=== PATIENT | male | born 1980 | race African-American/Black ===

== ENCOUNTER 2017-10-26 12:55 | Emergency (ER) | payer SELFPAY ==
[2017-10-26] MEDS ORDERED: ONDANSETRON 4 MG TAB.RAPDIS PO ONE (13:22)
--- NOTE | 2017-10-26 13:28 | ER Document Report ---
ED GI/ - General Chief Complaint: Nausea/Vomiting/Diarrhea Stated Complaint: ABDOMINAL PAIN Time Seen by Provider: 10/26/17 13:22 Notes: The patient is a 37-year-old male, no past medical history, presents with 4 days of nausea, vomiting and watery diarrhea. In addition, he is having right upper neck pain and a right-sided headache. 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 Denies recent travel, hematemesis, fevers, chest pain, shortness of breath, blurry vision, focal weakness, numbness, tingling or undercooked foods. TRAVEL OUTSIDE OF THE [place] IN LAST 30 DAYS: No - Related Data Allergies/Adverse Reactions: No Known Allergies Allergy (Unverified 10/26/17 12:57) Past Medical History - General Information source: Patient - Social History Smoking Status: Current Some Day Smoker Chew tobacco use (# tins/day): No Frequency of alcohol use: None Drug Abuse: None Family History: Reviewed & Not Pertinent Patient has suicidal ideation: No Patient has homicidal ideation: No Renal/ Medical History: Denies: Hx Peritoneal Dialysis Review of Systems - Review of Systems Notes: REVIEW OF SYSTEMS: CONSTITUTIONAL: -fevers, -chills EENT: -eye pain, -difficulty swallowing, -nasal congestion CARDIOVASCULAR: -chest pain, -syncope. RESPIRATORY: -cough, -SOB GASTROINTESTINAL: -abdominal pain, +nausea, +vomiting, +diarrhea GENITOURINARY: -dysuria, -hematuria MUSCULOSKELETAL: -back pain, +right-sided neck pain SKIN: -rash or skin lesions. HEMATOLOGIC: -easy bruising or bleeding. LYMPHATIC: -swollen, enlarged glands. NEUROLOGICAL: -altered mental status or loss of consciousness, +headache, - neurologic symptoms PSYCHIATRIC: -anxiety, -depression. ALL OTHER SYSTEMS REVIEWED AND NEGATIVE. Physical Exam - Vital signs Vitals: Temp Pulse Resp BP Pulse Ox 98.4 F 83 16 127/88 H 95 10/26/17 12:59 10/26/17 12:59 10/26/17 12:59 10/26/17 12:59 10/26/17 12:59 - Notes Notes: PHYSICAL EXAMINATION: GENERAL: Well-appearing, well-nourished and in no acute distress. HEAD: Atraumatic, normocephalic. EYES: Pupils equal round and reactive to light, extraocular movements intact, sclera anicteric, conjunctiva are normal. ENT: nares patent, oropharynx clear without exudates. Moist mucous membranes. NECK: Normal range of motion, supple without lymphadenopathy, mild tenderness over right cervical paraspinal muscles. LUNGS: Breath sounds clear to auscultation bilaterally and equal. No wheezes rales or rhonchi. HEART: Regular rate and rhythm without murmurs ABDOMEN: Soft, nontender, normoactive bowel sounds. No guarding, no rebound. No masses appreciated. EXTREMITIES: Normal range of motion, no pitting or edema. No cyanosis. NEUROLOGICAL: Cranial nerves grossly intact. Normal speech, normal gait. Normal sensory and motor exams. PSYCH: Normal mood, normal affect. SKIN: Warm, Dry, normal turgor, no rashes or lesions noted. Course - Re-evaluation Re-evalutation: Patient appears well and his labs are unremarkable. Suspect a viral gastroenteritis with nausea, vomiting and diarrhea. He has absolutely no abdominal tenderness. Patient is drinking fluids after Zofran without any nausea or vomiting. This headache is not consistent with SAH, ICH or meningitis at this time. Will have a follow-up with his primary care physician. - Vital Signs Vital signs: Temp Pulse Resp BP Pulse Ox 98.4 F 83 16 127/88 H 95 10/26/17 12:59 10/26/17 12:59 10/26/17 12:59 10/26/17 12:59 10/26/17 12:59 - Laboratory Result Diagrams: 10/26/17 13:32 10/26/17 13:32 Laboratory results interpreted by me: 10/26/17 13:32 Seg Neutrophils % 78.2 H Discharge - Discharge Clinical Impression: Nausea vomiting and diarrhea, Exposure to paint fumes Headache Qualifiers: Headache type: unspecified Headache chronicity pattern: unspecified pattern Intractability: not intractable Qualified Code(s): R51 - Headache Condition: Stable Disposition: HOME, SELF-CARE Additional Instructions: VOMITING: Vomiting (or nausea without vomiting) can be caused by many other different problems. It can mean that something's wrong with the stomach, such as ulcers or inflammation or the intestinal tract, such as appendicitis. But it can also be a symptom of a problem that has nothing to do with the stomach or intestines. Vomiting is common with severe headaches, earaches, tonsillitis, and kidney infections, etc. We see it with pneumonia or heart attacks. Drugs can cause nausea and vomiting. Many abdominal problems cause vomiting; for example, gallstones, kidney stones, pancreatitis, and intestinal obstruction ( blocked bowels). In most cases, curing the vomiting depends on fixing the problem that caused it. For temporary relief, we may use an anti-nausea medicine. For home use, we can prescribe suppositories, chewable pills, pills that dissolve in the mouth, or liquid anti-nausea drugs. If the vomiting seems to be caused by a problem in the stomach, acid-suppressing drugs may be prescribed as well. It's important to avoid dehydration. Sip small amounts of clear liquids ( soft drinks, tea, broth, etc) . Try to take fluids frequently even if you are vomiting to prevent dehydration. Take increasing amounts of fluid and when liquids are being consumed successfully, advance to small amounts of bland food (toast, soups, mashed potatoes, etc.) until you are able to resume a regular diet. Avoid aspirin, tobacco, and alcohol. If the vomiting worsens, if the problem that's making you vomit worsens, or if there's evidence of bleeding in the stomach (such as black, tarry stool, or bloody or black vomit), you should return immediately. Also, return if abdominal pain worsens or becomes localized to one area or you develop high fever. Call your doctor if you aren't improved in 24 hours. DIARRHEA, NON-SPECIFIC: Diarrhea means frequent, watery stools. There are many causes. Any problem that keeps the intestinal tract from absorbing water from the stool can lead to diarrhea. A sudden new diarrhea problem is usually caused by a virus, food sensitivity, toxic bacteria, or drugs. In this case, we expect the problem to go away soon. Testing is done only if you seem seriously ill from the diarrhea. If you have chronic diarrhea, or diarrhea that keeps coming back, we need to find out why. Chronic diarrhea can be due to inflammation of the bowels such as Crohn's disease or ulcerative colitis, food sensitivity such as intolerance to lactose or wheat protein, irritable bowel syndrome, and other problems. If your diarrhea is a significant problem but it's not clear why you have it, we' ll refer you to a specialist for further testing. During an episode of diarrhea, drink small amounts (two to six ounces) of clear liquids (soft drinks, sport drinks, herb teas, broth, etc). Take fluids frequently to prevent dehydration. It's usually not a problem to take mild anti- diarrhea medication such as Kaopectate or Pepto-Bismol. As the diarrhea eases, advance to small amounts of bland food (mashed potato, toast) for 24 hours. Call the physician if blood appears in your vomit or stool, if vomiting lasts longer than 24 hours, if the abdominal pain worsens or becomes localized to one area, if you develop high fever, or if you become lightheaded and weak. VIRAL SYNDROME: The physician has diagnosed a viral infection. Viruses not only cause "colds," but can cause many different symptoms including generalized aching, fever, headache, cough, diarrhea, nausea, vomiting, and fatigue. The treatment, for the most part, is simply relief of symptoms. This means that antibiotics are usually not given. Rest, fluids, pain medications and, occasionally, medication for the specific symptoms that are most bothersome will be prescribed. Use good handwashing to avoid passing the virus to others. Shared toys should be cleaned with disinfectant. Clean the toilets, sinks, and counter surfaces in bathrooms. Launder clothing in hot water. Contact the physician if you develop any new or unusual symptoms such as severe headache, stiff neck, high fever, chest pain, productive cough, or shortness of breath. You should be rechecked if you don't see marked improvement within seven to 10 days. ANTINAUSEA MEDICATION: You have been given a medication to suppress nausea and vomiting. This type of medication can be given as a shot, pill, or suppository. It will usually last for many hours. Pills and shots usually last six to eight hours. For the typical illness, only one or two doses of the medication may be necessary. Mild lightheadedness may occur. This type of medicine can cause drowsiness. Do not drive or operate dangerous machinery while under its influence. Do not mix with alcohol. See your doctor at once if you have muscle spasms or tightness, or uncontrollable motions (particularly of the neck, mouth, or jaw). Persistent vomiting or severe lightheadedness should also be evaluated by the physician. FOLLOW-UP CARE: If you have been referred to a physician for follow-up care, call the physician s office for an appointment as you were instructed or within the next two days. If you experience worsening or a significant change in your symptoms, notify the physician immediately or return to the Emergency Department at any time for re-evaluation. HEADACHE: The physician does not feel that the headache you are experiencing has a serious underlying cause. Most headaches are due to emotional stress, with resultant muscle tension (tension headache). Occasionally, headaches are secondary to changes in the blood vessels of the scalp (vascular headache and migraine headache). Sometimes, a headache is the first symptom of another developing illness, such as a viral infection. You have no evidence of stroke, bleeding, meningitis, or other serious cause of your headache. The treatment of headaches varies with the severity and cause of the pain. Not all headaches need pain shots. In fact, there is evidence that using narcotics for headaches may make them worse in the long run. The physician will determine the therapy that's in your best interest. If you develop a fever, if the headache is different from any you've previously experienced, or if the headache progressively worsens, then call your physician at once or go to the emergency room. FOLLOW-UP CARE: If you have been referred to a physician for follow-up care, call the physician s office for an appointment as you were instructed or within the next two days. If you experience worsening or a significant change in your symptoms, notify the physician immediately or return to the Emergency Department at any time for re-evaluation. Prescriptions: Ondansetron [Zofran Odt 4 mg Tablet] 1 - 2 tab PO Q4H PRN #15 tab.rapdis PRN Reason: For Nausea/Vomiting Forms: Return to Work Referrals: [facility] [Outside] - Follow up as needed
[2017-10-26 13:44] LABS: ABSOLUTE LYMPHOCYTES (AUTO) 1.2 10^3/uL (0.5-4.7); ABSOLUTE MONOCYTES (AUTO) 0.6 10^3/uL (0.1-1.4); ABSOLUTE NEUT (AUTO) 6.5 10^3/uL (1.7-8.2); BASOPHILS % (AUTO) 0.3 % (0-2); EOSINOPHILS % (AUTO) 0.5 % (0-6); HEMATOCRIT 45.1 % (37.9-51.0); HEMOGLOBIN 15.3 g/dL (13.5-17.0); LYMPHOCYTES % (AUTO) 14.3 % (13-45); MEAN CORPUSCULAR HEMOGLOBIN 28.9 pg (27.0-33.4); MEAN CORPUSCULAR HGB CONC 33.9 g/dL (32.0-36.0); MEAN CORPUSCULAR VOLUME 85 fl (80-97); MONOCYTES % (AUTO) 6.7 % (3-13); PLATELET COUNT 185 10^3/uL (150-450); RED CELL DISTRIBUTION WIDTH 13.1 % (11.5-14.0); SEGMENTED NEUTROPHILS % (AUTO) 78.2 % (42-78); TOTAL CELLS COUNTED % (AUTO) 100 %; WHITE BLOOD COUNT 8.3 10^3/uL (4.0-10.5)
[2017-10-26 14:34] LABS: ALANINE AMINOTRANSFERASE 24 U/L (21-72); ALBUMIN 4.5 g/dL (3.5-5.0); ALKALINE PHOSPHATASE 60 U/L (38-126); ANION GAP 14 (5-19); ASPARTATE AMINO TRANSFERASE 17 U/L (17-59); BILIRUBIN,DIRECT 0.3 mg/dL (0.0-0.4); BILIRUBIN,TOTAL 1.1 mg/dL (0.2-1.3); BLOOD UREA NITROGEN 10 mg/dL (7-20); CALCIUM 10.1 mg/dL (8.4-10.2); CARBON DIOXIDE 27 mmol/L (22-30); CHLORIDE 101 mmol/L (98-107); GLUCOSE 109 mg/dL (75-110); LIPASE 38.7 U/L (23-300); POTASSIUM 4.4 mmol/L (3.6-5.0); SODIUM 141.7 mmol/L (137-145); TOTAL PROTEIN 7.6 g/dL (6.3-8.2)
[2017-10-26 14:58] VITALS: BP 128/77
== END 2017-10-26 14:58 | disposition home or self-care (01) ==
LOC: ER 12:55
DX: R11.2 Nausea with vomiting, unspecified (principal); F17.200 Nicotine dependence, unspecified, uncomplicated; R51 Headache
CPT/HCPCS: 99284; 36415; 83690; 85025; 80053; S0119

== ENCOUNTER 2019-03-31 21:51 | Inpatient (IN) | payer OTHER ==
[2019-03-31] MEDS ORDERED: ACETAMINOPHEN 325 MG TABLET PO ONE (23:27)
[2019-03-31 23:32] LABS: VENOUS BLOOD BASE EXCESS 2.5 mmol/L; VENOUS BLOOD HCO3 28.4 mmol/L (20-32); VENOUS BLOOD PCO2 48.6 mmHg (35-63); VENOUS BLOOD PH 7.39 (7.30-7.42)
[2019-03-31 23:34] LABS: ABSOLUTE LYMPHOCYTES (AUTO) 1.1 10^3/uL (0.5-4.7); ABSOLUTE NEUT (AUTO) 9.2 10^3/uL (1.7-8.2); BASOPHILS % (AUTO) 0.2 % (0-2); EOSINOPHILS % (AUTO) 0.2 % (0-6); HEMATOCRIT 43.1 % (37.9-51.0); HEMOGLOBIN 14.5 g/dL (13.5-17.0); LYMPHOCYTES % (AUTO) 9.9 % (13-45); MEAN CORPUSCULAR HEMOGLOBIN 27.8 pg (27.0-33.4); MEAN CORPUSCULAR HGB CONC 33.6 g/dL (32.0-36.0); MEAN CORPUSCULAR VOLUME 83 fl (80-97); MONOCYTES % (AUTO) 8.6 % (3-13); PLATELET COUNT 259 10^3/uL (150-450); RED CELL DISTRIBUTION WIDTH 13.6 % (11.5-14.0); SEGMENTED NEUTROPHILS % (AUTO) 81.1 % (42-78); TOTAL CELLS COUNTED % (AUTO) 100 %; WHITE BLOOD COUNT 11.4 10^3/uL (4.0-10.5)
--- NOTE | 2019-03-31 23:34 | ER Document Report ---
ED General - General Chief Complaint: Arm Problem Stated Complaint: ARM SWELLING Time Seen by Provider: 03/31/19 22:49 TRAVEL OUTSIDE OF THE [place] IN LAST 30 DAYS: No - HPI Notes: This is a 38-year-old male with a history of IV drug abuse, presenting to the emergency department complaining of fever and left upper extremity swelling. Patient states swelling has been going on for about a week. Initial temp in the emergency department is 102.7 Fahrenheit blood pressure is 126/79 heart rate is 129. Patient denies chills, visual changes, nausea, vomiting. - Related Data Allergies/Adverse Reactions: No Known Allergies Allergy (Unverified 10/26/17 12:57) Past Medical History - Social History Smoking Status: Current Every Day Smoker Frequency of alcohol use: None Drug Abuse: Heroin, Methamphetamine Family History: Reviewed & Not Pertinent Patient has suicidal ideation: No Patient has homicidal ideation: No - Past Medical History Cardiac Medical History: Reports: None Pulmonary Medical History: Reports: None EENT Medical History: Reports: None Neurological Medical History: Reports: None Endocrine Medical History: Reports: None Renal/ Medical History: Reports: None. Denies: Hx Peritoneal Dialysis Malignancy Medical History: Reports None GI Medical History: Reports: None Musculoskeletal Medical History: Reports None Skin Medical History: Reports None Psychiatric Medical History: Reports: None Review of Systems - Review of Systems Constitutional: See HPI, Fever EENT: No symptoms reported Cardiovascular: No symptoms reported Respiratory: No symptoms reported Gastrointestinal: No symptoms reported Genitourinary: No symptoms reported Male Genitourinary: No symptoms reported Musculoskeletal: See HPI Skin: See HPI Hematologic/Lymphatic: No symptoms reported Neurological/Psychological: No symptoms reported Physical Exam - Vital signs Vitals: Temp Pulse Resp BP Pulse Ox 102.7 F H 129 H 22 H 126/79 H 100 03/31/19 22:37 03/31/19 22:37 03/31/19 22:37 03/31/19 22:37 03/31/19 22:37 - General General appearance: Alert In distress: Mild - HEENT Head: Normocephalic, Atraumatic Eyes: Normal Pupils: PERRL - Respiratory Respiratory status: No respiratory distress Chest status: Nontender Breath sounds: Normal Chest palpation: Normal - Cardiovascular Rhythm: Tachycardia Heart sounds: Normal auscultation Murmur: No - Abdominal Inspection: Normal Distension: No distension Bowel sounds: Normal Tenderness: Nontender Organomegaly: No organomegaly - Extremities General upper extremity: Other - Left upper extremity exam is significant for moderate swelling on the radial aspect of the patient's forearm, proximally. This area is tender to palpation and edematous. The forearm compartment itself does not feel tense or rigid. Patient is able to move all of his digits of his left hand. Sensation is intact in all 5 digits. Range of motion is intact in all 5 digits. There is a mild amount of erythema in the region of the forearm mentioned above. No crepitus or emphysema is appreciated. - Neurological Neuro grossly intact: Yes Cognition: Normal Orientation: AAOx4 Natali Coma Scale Eye Opening: Spontaneous Natali Coma Scale Verbal: Oriented [place] Coma Scale Motor: Obeys Commands Natali Coma Scale Total: 15 Speech: Normal Cranial nerves: Normal - Psychological Associated symptoms: Normal affect, Normal mood - Skin Skin irregularity: other - Please refer to the musculoskeletal extremity exam sho thomason for skin findings Course - Re-evaluation Re-evalutation: 04/01/19 01:05 04/01/19 01:57 Patient is in no acute distress at this time. Drs. Cortez and Darryl have been consulted. Differential diagnosis: Cellulitis, abscess, compartment syndrome, sepsis, necrotizing fasciitis Impression: 38-year-old male with history of IV drug abuse presenting with left forearm swelling. Work-up is remarkable for a 5.4 cm fluid collection in the patient's left forearm consistent with an abscess. Final diagnoses: #1 left forearm abscess #2 history of IV drug abuse Plan: Admission for IV antibiotics, surgical I&D of left forearm abscess. - Vital Signs Vital signs: Temp Pulse Resp BP Pulse Ox 102.7 F H 129 H 19 132/84 H 99 03/31/19 22:37 03/31/19 22:37 03/31/19 23:01 03/31/19 23:00 03/31/19 23:01 - Laboratory Result Diagrams: 03/31/19 23:14 03/31/19 23:14 Laboratory results interpreted by me: 03/31/19 03/31/19 03/31/19 23:14 23:14 23:29 WBC 11.4 H Lymph % (Auto) 9.9 L Absolute Neuts (auto) 9.2 H Seg Neutrophils % 81.1 H Sodium 132.4 L Chloride 96 L Glucose 117 H POC Glucose 114 H AST 16 L Urine Ketones Leukocyte Esterase Rfl 04/01/19 00:16 WBC Lymph % (Auto) Absolute Neuts (auto) Seg Neutrophils % Sodium Chloride Glucose POC Glucose AST Urine Ketones TRACE H Leukocyte Esterase Rfl TRACE H Results reviewed by me. - Diagnostic Test Radiology reviewed: Reports reviewed - EKG Interpretation by Me Additional EKG results interpreted by me: 04/01/19 00:18 EKG obtained at 2325 hrs. on 03/31/2019 was interpreted by this MD. Findings: Sinus tachycardia, rate of 120, normal axis, narrow QRS complex, non specific ST segments. Impression: Sinus tachycardia with nonspecific ST segments - Consults dr. adrienne smalls, hospitalist Time consulted: 01:30 - will consult for IVDA issues Reason for consultation: 04/01/19 01:45 management of heroin abuse Consulted provider: will come to ER dr. alban cortez, surgicalist Time consulted: 01:38 - will admit to surgicalist service Reason for consultation: 04/01/19 01:47 Dr. Cortez was consulted for management of the patient's left forearm abscess. Dr. Cortez agreed to surgical management of the abscess and to admit the patient to the surgicalist service Discharge - Discharge Clinical Impression: Abscess of left forearm, History of intravenous drug abuse Condition: Good Disposition: ADMITTED INPATIENT Admitting Provider: Surgicalist Unit Admitted: Surgical Floor
[2019-03-31 23:40] LABS: INTERNATIONAL RATION (INR) 0.96; PROTHROMBIN TIME 12.8 SEC (11.4-15.4)
[2019-03-31] MEDS ORDERED: CEFTRIAXONE 1 GM/D5W RTU 1 GM/50 ML RTUPB IV SCH (23:45)
[2019-03-31] MEDS ORDERED: VANCOMYCIN HCL 0 MG in DEXTROSE 5%-WATER 250 ML IV NR (23:45)
[2019-03-31 23:58] LABS: ALBUMIN 3.7 g/dL (3.5-5.0); ALKALINE PHOSPHATASE 52 U/L (38-126); ANION GAP 9 (5-19); ASPARTATE AMINO TRANSFERASE 16 U/L (17-59); BILIRUBIN,DIRECT 0.1 mg/dL (0.0-0.4); BILIRUBIN,TOTAL 0.4 mg/dL (0.2-1.3); BLOOD UREA NITROGEN 7 mg/dL (7-20); CALCIUM 9.5 mg/dL (8.4-10.2); CARBON DIOXIDE 27 mmol/L (22-30); CHLORIDE 96 mmol/L (98-107); GLUCOSE 117 mg/dL (75-110); POTASSIUM 4.1 mmol/L (3.6-5.0)
[2019-03-31] MEDS ORDERED: NORMAL SALINE IV PRN (23:58)
[2019-04-01] MEDS ORDERED: VANCOMYCIN HCL INJ 1000 MG VIAL IV PRN (00:18)
[2019-04-01] MEDS ORDERED: VANCOMYCIN HCL 1,500 MG in DEXTROSE 5%-WATER 250 ML IV ONE (00:30)
--- NOTE | 2019-04-01 00:44 | RADIOLOGY REPORT (SQ) ---
EXAM DESCRIPTION: XR CHEST 1 VIEW COMPLETED DATE/TME: 04/01/2019 00:08 CLINICAL HISTORY: 38 years, Male, febrile COMPARISON: None. NUMBER OF VIEWS: One TECHNIQUE: AP view of the chest LIMITATIONS: None. FINDINGS: The lungs are clear. The heart is normal in size. There is no pneumothorax or pleural effusion. There is no acute fracture. IMPRESSION: No acute cardiopulmonary abnormality copyright 2010 [employer]- All Rights Reserved
[2019-04-01 00:50] LABS: APPEARANCE,URINE SLIGHTLY-CLOUDY; BILIRUBIN,URINE NEGATIVE (NEGATIVE); CALCIUM OXALATE CRYSTALS,URINE FEW /HPF; COLOR,URINE YELLOW; GLUCOSE, URINE NEGATIVE (NEGATIVE); KETONES,URINE TRACE mg/dL (NEGATIVE); PROTEIN,URINE NEGATIVE (NEGATIVE); URINE SPECIFIC GRAVITY 1.023; UROBILINOGEN,URINE NEGATIVE mg/dL (<2.0)
--- NOTE | 2019-04-01 01:02 | RADIOLOGY REPORT (SQ) ---
US EXTREMITY MUSCULOSKELETAL LIMITED EXAM DATE: 04/01/2019 12:09 AM CDT HISTORY: Forearm swelling. History of IV drug use. Evaluate for abscess. COMPARISON: None. TECHNIQUE: Sims-scale and color Doppler images of the left upper extremity were obtained. FINDINGS: There is a well-circumscribed complex heterogeneous mass in the soft tissues of the left forearm which measures approximately 5.4 x 3.8 x 2.0 cm. There is mild surrounding color Doppler blood flow. Overlying subcutaneous edema is present. IMPRESSION: 5.4 cm complex collection in the forearm soft tissues, which may represent an abscess in the correct clinical setting.
[2019-04-01] MEDS ORDERED: ONDANSETRON HCL INJ/PF 4 MG/2 ML SDV IV PRN (01:40)
[2019-04-01] MEDS ORDERED: NICOTINE 7 MG/24 HR PATCH.TD24 TD ONE (01:54)
[2019-04-01] MEDS ORDERED: VANCOMYCIN HCL 0 MG in DEXTROSE 5%-WATER 250 ML IV NR (02:00)
[2019-04-01] MEDS: DEXTROSE 5%-LACTATED RINGERS 1,000 ML IV PRN ×2 (04:03→22:21)
--- NOTE | 2019-04-01 05:31 | PDOC CONSULTATION ---
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 He presents with approximately 1 week of left forearm pain and swelling with subjective fevers and fatigue he seeks evaluation the emergency room where he is found to have a 5.4 cm abscess and referred to surgery for admission. Patient denies previous episode, admits to fatigue and subjective fever and palpitations. Past Medical History Cardiac Medical History: Reports: None Pulmonary Medical History: Reports: None EENT Medical History: Reports: None Neurological Medical History: Reports: None Endocrine Medical History: Reports: None Renal/ Medical History: Reports: None Malignancy Medical History: Reports: None GI Medical History: Reports: None Musculoskeltal Medical History: Reports: None Skin Medical History: Reports: None Psychiatric Medical History: Reports: None Social History Information Source: Patient Smoking Status: Current Every Day Smoker Electronic Cigarette use?: Yes Number of Years Smokin Frequency of Alcohol Use: Rare Hx Recreational Drug Use: Yes Drugs: Heroin, Other - Methamphetamine Hx Prescription Drug Abuse: No - Advance Directive Resuscitation Status: Full Code Family History Family History: COPD, Hypertension Parental Family History Reviewed: Yes Children Family History Reviewed: Yes Sibling(s) Family History Reviewed.: Yes Medication/Allergy Home Medications: Ondansetron [Zofran Odt 4 mg Tablet] 1 - 2 tab PO Q4H PRN #15 tab.rapdis 10/26/17 Allergies/Adverse Reactions: No Known Allergies Allergy (Unverified 10/26/17 12:57) Review of Systems Constitutional: PRESENT: as per HPI, chills, fatigue, fever(s), weakness, weight loss Eyes: ABSENT: visual disturbances Ears: ABSENT: hearing changes Cardiovascular: PRESENT: dyspnea on exertion, palpitations. ABSENT: chest pain, edema, orthropnea Respiratory: PRESENT: as per HPI, cough, dyspnea. ABSENT: hemoptysis, sputum Gastrointestinal: ABSENT: abdominal pain, constipation, diarrhea, hematemesis, hematochezia, nausea, vomiting Genitourinary: ABSENT: dysuria, hematuria Musculoskeletal: ABSENT: joint swelling Integumentary: ABSENT: rash, wounds Neurological: ABSENT: abnormal gait, abnormal speech, confusion, dizziness, focal weakness, syncope Psychiatric: ABSENT: anxiety, depression, homidical ideation, suicidal ideation Endocrine: ABSENT: cold intolerance, heat intolerance, polydipsia, polyuria Hematologic/Lymphatic: ABSENT: easy bleeding, easy bruising Physical Exam Vital Signs: Temp Pulse Resp BP Pulse Ox 98.4 F 95 18 121/74 96 04/01/19 04:00 04/01/19 04:00 04/01/19 04:00 04/01/19 04:00 04/01/19 04:00 Intake & Output 03/30/19 03/31/19 04/01/19 11:59 11:59 11:59 Intake Total 2402 Balance 2402 Weight 80.1 kg General appearance: PRESENT: cooperative, disheveled, mild distress, thin, well- developed. ABSENT: morbidly obese, obese, well-nourished Head exam: PRESENT: atraumatic, normocephalic Eye exam: PRESENT: conjunctiva pink, EOMI, PERRLA. ABSENT: scleral icterus Ear exam: PRESENT: normal external ear exam Mouth exam: PRESENT: moist, tongue midline Teeth exam: PRESENT: poor dentation Neck exam: ABSENT: carotid bruit, JVD, lymphadenopathy, thyromegaly Respiratory exam: PRESENT: prolonged expiratory phas. ABSENT: accessory muscle use, crackles, retraction Cardiovascular exam: PRESENT: +S1, +S2, systolic murmur, tachycardia. ABSENT: rubs Pulses: PRESENT: normal dorsalis pedis pul Vascular exam: PRESENT: normal capillary refill GI/Abdominal exam: PRESENT: normal bowel sounds, soft. ABSENT: distended, guarding, mass, organolmegaly, rebound, tenderness Rectal exam: PRESENT: deferred Extremities exam: PRESENT: full ROM, tenderness, other - Erythemic, swollen hot and painful left forearm. ABSENT: calf tenderness, clubbing, pedal edema Musculoskeletal exam: ABSENT: normal inspection Neurological exam: PRESENT: alert, awake, oriented to person, oriented to place, oriented to time, oriented to situation, CN II-XII grossly intact. ABSENT: motor sensory deficit Psychiatric exam: PRESENT: appropriate affect, normal mood. ABSENT: homicidal ideation, suicidal ideation Skin exam: PRESENT: dry, intact, warm. ABSENT: cyanosis, rash Results Laboratory Results: 03/31/19 23:14 03/31/19 23:14 03/31/19 03/31/19 03/31/19 23:14 23:14 23:14 WBC 11.4 H RBC 5.20 Hgb 14.5 Hct 43.1 MCV 83 MCH 27.8 MCHC 33.6 RDW 13.6 Plt Count 259 Seg Neutrophils % 81.1 H VBG pH VBG pCO2 VBG HCO3 VBG Base Excess Sodium 132.4 L Potassium 4.1 Chloride 96 L Carbon Dioxide 27 Anion Gap 9 BUN 7 Creatinine 0.77 Est GFR ( Amer) > 60 Glucose 117 H Lactic Acid 1.5 Calcium 9.5 Total Bilirubin 0.4 AST 16 L Alkaline Phosphatase 52 Total Protein 7.0 Albumin 3.7 Urine Color Urine Appearance Urine pH Ur Specific [place] Urine Protein Urine Glucose (UA) Urine Ketones Urine Blood Urine RBC (Auto) 03/31/19 04/01/19 23:14 00:16 WBC RBC Hgb Hct MCV MCH MCHC RDW Plt Count Seg Neutrophils % VBG pH 7.39 VBG pCO2 48.6 VBG HCO3 28.4 VBG Base Excess 2.5 Sodium Potassium Chloride Carbon Dioxide Anion Gap BUN Creatinine Est GFR ( Amer) Glucose Lactic Acid Calcium Total Bilirubin AST Alkaline Phosphatase Total Protein Albumin Urine Color YELLOW Urine Appearance SLIGHTLY-CLOUDY Urine pH 5.0 Ur Specific [place] 1.023 Urine Protein NEGATIVE Urine Glucose (UA) NEGATIVE Urine Ketones TRACE H Urine Blood NEGATIVE Urine RBC (Auto) 8 Impressions: Chest X-Ray 04/01/19 00:08 IMPRESSION: No acute cardiopulmonary abnormality copyright 2011 [employer]- All Rights Reserved Extremity Ultrasound 04/01/19 00:09 IMPRESSION: 5.4 cm complex collection in the forearm soft tissues, which may represent an abscess in the correct clinical setting. 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
[2019-04-01] MEDS: KETOROLAC TROMETHAMINE INJ/PF 30 MG/1 ML SDV IV SCH ×2 (05:54→14:32)
--- NOTE | 2019-04-01 06:28 | EKG REPORT ---
SEVERITY:- OTHERWISE NORMAL ECG - SINUS TACHYCARDIA : Confirmed by: Mo Hernandez MD 01-Apr-2019 06:28:10
--- NOTE | 2019-04-01 06:46 | PDOC H&P ---
History of Present Illness Admission Date/PCP: 04/01/19 01:54 Patient complains of: Left arm swelling and pain History of Present Illness: KEISHA GARCIA is a 38 year old male without other significant medical comorbidity. The patient has used IV drugs in the recent past, and began having swelling and pain in the left arm. The patient has recently injected heroin, however he has used other drugs in the remote past. He denies any recent history of cocaine or methamphetamine use. His symptoms began approximately 2 days ago. He reports fevers and chills at home. He denies nausea, vomiting, abdominal pain, chest pain, shortness of breath, headache, malaise, fatigue. His pain is rated at 10 out of 10. Nothing makes it better. Palpation and movement make it worse. The patient denies distal left upper externally paresthesias. He is able to move his hand without difficulty. Past Medical History Cardiac Medical History: Reports: None Pulmonary Medical History: Reports: None EENT Medical History: Reports: None Neurological Medical History: Reports: None Endocrine Medical History: Reports: None Renal/ Medical History: Reports: None Malignancy Medical History: Reports: None GI Medical History: Reports: None Musculoskeltal Medical History: Reports: None Skin Medical History: Reports: None Psychiatric Medical History: Reports: None Social History Smoking Status: Current Every Day Smoker Electronic Cigarette use?: Yes Number of Years Smokin Frequency of Alcohol Use: Rare Hx Recreational Drug Use: Yes Drugs: Heroin, Other - Methamphetamine in the past Hx Prescription Drug Abuse: No - Advance Directive Resuscitation Status: Full Code Family History Family History: COPD, Hypertension Parental Family History Reviewed: Yes Children Family History Reviewed: Yes Sibling(s) Family History Reviewed.: Yes Medication/Allergy Home Medications: Ondansetron [Zofran Odt 4 mg Tablet] 1 - 2 tab PO Q4H PRN #15 tab.rapdis 10/26/17 Allergies/Adverse Reactions: No Known Allergies Allergy (Unverified 10/26/17 12:57) Review of Systems Constitutional: PRESENT: chills, fever(s). ABSENT: anorexia, fatigue, headache(s), weakness Eyes: ABSENT: visual disturbances Ears: ABSENT: hearing changes Nose, Mouth, and Throat: ABSENT: mouth pain, sore throat Cardiovascular: ABSENT: chest pain Gastrointestinal: ABSENT: abdominal pain, hematochezia, melena, nausea, vomiting Genitourinary: ABSENT: difficulty urinating, dysuria Musculoskeletal: PRESENT: other - Left arm pain and swelling. ABSENT: back pain Integumentary: ABSENT: pruritus, rash Neurological: ABSENT: confusion, convulsions, dizziness, tingling, weakness Psychiatric: PRESENT: other - Substance abuse. ABSENT: anxiety, depression Endocrine: ABSENT: cold intolerance, heat intolerance Hematologic/Lymphatic: ABSENT: easy bleeding, easy bruising Physical Exam Vital Signs: Temp Pulse Resp BP Pulse Ox 98.4 F 95 18 121/74 96 04/01/19 04:00 04/01/19 04:00 04/01/19 04:00 04/01/19 04:00 04/01/19 04:00 Intake & Output 03/30/19 03/31/19 04/01/19 06:59 06:59 06:59 Intake Total 2402 Balance 2402 Weight 80.1 kg General appearance: PRESENT: mild distress - Left arm pain Head exam: PRESENT: atraumatic, normocephalic Eye exam: PRESENT: EOMI, PERRLA. ABSENT: scleral icterus Mouth exam: PRESENT: moist, neck supple Neck exam: ABSENT: meningismus, tenderness, thyromegaly, tracheal deviation Respiratory exam: PRESENT: clear to auscultation evert, unlabored. ABSENT: chest wall tenderness, tachypnea, wheezes Cardiovascular exam: PRESENT: RRR Pulses: PRESENT: normal radial pulses Vascular exam: PRESENT: normal capillary refill GI/Abdominal exam: PRESENT: soft. ABSENT: distended, guarding, rebound, rigid, tenderness Rectal exam: PRESENT: deferred Extremities exam: PRESENT: other - Tender left forearm on the anteromedial surf jeannine. Good range of motion. Motor function and sensory function appear intact Musculoskeletal exam: PRESENT: tenderness Neurological exam: PRESENT: alert, awake, oriented to person, oriented to place, oriented to time, oriented to situation, CN II-XII grossly intact. ABSENT: motor sensory deficit Psychiatric exam: ABSENT: agitated, anxious, depressed Focused psych exam: ABSENT: delusional Skin exam: PRESENT: erythema. ABSENT: cyanosis, jaundice Results Laboratory Results: 03/31/19 23:14 03/31/19 23:14 03/31/19 03/31/19 03/31/19 23:14 23:14 23:14 WBC 11.4 H RBC 5.20 Hgb 14.5 Hct 43.1 MCV 83 MCH 27.8 MCHC 33.6 RDW 13.6 Plt Count 259 Seg Neutrophils % 81.1 H VBG pH VBG pCO2 VBG HCO3 VBG Base Excess Sodium 132.4 L Potassium 4.1 Chloride 96 L Carbon Dioxide 27 Anion Gap 9 BUN 7 Creatinine 0.77 Est GFR ( Amer) > 60 Glucose 117 H Lactic Acid 1.5 Calcium 9.5 Total Bilirubin 0.4 AST 16 L Alkaline Phosphatase 52 Total Protein 7.0 Albumin 3.7 Urine Color Urine Appearance Urine pH Ur Specific [place] Urine Protein Urine Glucose (UA) Urine Ketones Urine Blood Urine RBC (Auto) 03/31/19 04/01/19 23:14 00:16 WBC RBC Hgb Hct MCV MCH MCHC RDW Plt Count Seg Neutrophils % VBG pH 7.39 VBG pCO2 48.6 VBG HCO3 28.4 VBG Base Excess 2.5 Sodium Potassium Chloride Carbon Dioxide Anion Gap BUN Creatinine Est GFR ( Amer) Glucose Lactic Acid Calcium Total Bilirubin AST Alkaline Phosphatase Total Protein Albumin Urine Color YELLOW Urine Appearance SLIGHTLY-CLOUDY Urine pH 5.0 Ur Specific [place] 1.023 Urine Protein NEGATIVE Urine Glucose (UA) NEGATIVE Urine Ketones TRACE H Urine Blood NEGATIVE Urine RBC (Auto) 8 Impressions: Chest X-Ray 04/01/19 00:08 IMPRESSION: No acute cardiopulmonary abnormality copyright 2011 [employer]- All Rights Reserved Extremity Ultrasound 04/01/19 00:09 IMPRESSION: 5.4 cm complex collection in the forearm soft tissues, which may represent an abscess in the correct clinical setting. Assessment & Plan - Diagnosis (1) Abscess of left forearm Is this a current diagnosis for this admission?: Yes (2) History of intravenous drug abuse Is this a current diagnosis for this admission?: Yes - Plan Summary Plan Summary: This is a 38-year-old male with a large left upper extremity abscess. It appears to be fairly deep-seated. I have recommended incision and drainage in the operating room. The patient has agreed to this. Risks/benefits discussed, informed consent obtained, and all questions answered.
--- NOTE | 2019-04-01 08:31 | PDOC PROGRESS REPORT ---
Subjective Progress Note for:: 04/01/19 Subjective:: 38 year old male with a past medical history of tobacco and daily m ethamphetamine and heroin IV drug use. He presents with approximately 1 week of left forearm pain and swelling with subjective fevers and fatigue he seeks evaluation the emergency room where he is found to have a 5.4 cm abscess and referred to surgery for admission. Patient denies previous episode, admits to fatigue and subjective fever and palpitations. 04/01/[id number]-old male with history of IV drug abuse admitted with left forearm abscess. No acute events since the admission. Patient may go for incision and drainage of the abscess today. Patient is comfortably in the bed denies any pain denies any problems. Reason For Visit: ARM ABSCESS Physical Exam Vital Signs: Temp Pulse Resp BP Pulse Ox 98.4 F 87 18 121/74 96 04/01/19 04:00 04/01/19 07:00 04/01/19 04:00 04/01/19 04:00 04/01/19 04:00 Intake & Output 03/31/19 04/01/19 04/02/19 06:59 06:59 06:59 Intake Total 2402 Balance 2402 Weight 80.1 kg General appearance: PRESENT: no acute distress, cooperative Head exam: PRESENT: atraumatic Eye exam: PRESENT: PERRLA Mouth exam: PRESENT: moist, tongue midline Teeth exam: PRESENT: poor dentation Neck exam: ABSENT: carotid bruit, JVD, lymphadenopathy, thyromegaly Respiratory exam: PRESENT: clear to auscultation evert. ABSENT: rales, rhonchi, wheezes Cardiovascular exam: PRESENT: RRR. ABSENT: diastolic murmur, rubs, systolic murmur GI/Abdominal exam: PRESENT: normal bowel sounds, soft. ABSENT: distended, guard ing, mass, organolmegaly, rebound, tenderness Rectal exam: PRESENT: deferred Extremities exam: PRESENT: full ROM. ABSENT: calf tenderness, clubbing, pedal edema Musculoskeletal exam: PRESENT: ambulatory Neurological exam: PRESENT: alert, awake, oriented to person, oriented to place, oriented to time, oriented to situation, CN II-XII grossly intact. ABSENT: motor sensory deficit Psychiatric exam: PRESENT: appropriate affect, normal mood. ABSENT: homicidal ideation, suicidal ideation Results Laboratory Results: 03/31/19 03/31/19 03/31/19 23:14 23:14 23:14 WBC 11.4 H RBC 5.20 Hgb 14.5 Hct 43.1 MCV 83 MCH 27.8 MCHC 33.6 RDW 13.6 Plt Count 259 Seg Neutrophils % 81.1 H VBG pH VBG pCO2 VBG HCO3 VBG Base Excess Sodium 132.4 L Potassium 4.1 Chloride 96 L Carbon Dioxide 27 Anion Gap 9 BUN 7 Creatinine 0.77 Est GFR ( Amer) > 60 Glucose 117 H Lactic Acid 1.5 Calcium 9.5 Total Bilirubin 0.4 AST 16 L Alkaline Phosphatase 52 Total Protein 7.0 Albumin 3.7 Urine Color Urine Appearance Urine pH Ur Specific [place] Urine Protein Urine Glucose (UA) Urine Ketones Urine Blood Urine RBC (Auto) 03/31/19 04/01/19 23:14 00:16 WBC RBC Hgb Hct MCV MCH MCHC RDW Plt Count Seg Neutrophils % VBG pH 7.39 VBG pCO2 48.6 VBG HCO3 28.4 VBG Base Excess 2.5 Sodium Potassium Chloride Carbon Dioxide Anion Gap BUN Creatinine Est GFR ( Amer) Glucose Lactic Acid Calcium Total Bilirubin AST Alkaline Phosphatase Total Protein Albumin Urine Color YELLOW Urine Appearance SLIGHTLY-CLOUDY Urine pH 5.0 Ur Specific [place] 1.023 Urine Protein NEGATIVE Urine Glucose (UA) NEGATIVE Urine Ketones TRACE H Urine Blood NEGATIVE Urine RBC (Auto) 8 Impressions: Chest X-Ray 04/01/19 00:08 IMPRESSION: No acute cardiopulmonary abnormality copyright 2010 [employer]- All Rights Reserved Extremity Ultrasound 04/01/19 00:09 IMPRESSION: 5.4 cm complex collection in the forearm soft tissues, which may represent an abscess in the correct clinical setting. Assessment and Plan - Diagnosis (1) Abscess of left forearm Is this a current diagnosis for this admission?: Yes Plan: Defer to surgery 04/01/2019-patient admitted with left forearm abscess patient may go for incision and drainage of abscess today. Surgical team is on board. Presently on IV vancomycin and ceftriaxone. Echocardiogram is pending. Blood cultures are pending. Temperature is 98.4. Today's labs are pending. (2) History of intravenous drug abuse Is this a current diagnosis for this admission?: Yes Plan: Monitor for withdrawal, opiates PRN 04/01/2019-patient has history of IV drug abuse, counseling was provided today. Echocardiogram was requested. Blood cultures are pending. Patient may be a candidate for BEL because of the history of IV drug abuse. Plan is to repeat the blood cultures today. - Time Time Spent with patient: 15-24 minutes Smoking Cessation Education: over 10 minutes Medications reviewed and adjusted accordingly: Yes Anticipated discharge: Home
[2019-04-01 08:32] LABS: ABSOLUTE LYMPHOCYTES (AUTO) 1.8 10^3/uL (0.5-4.7); ABSOLUTE MONOCYTES (AUTO) 1.3 10^3/uL (0.1-1.4); ABSOLUTE NEUT (AUTO) 8.2 10^3/uL (1.7-8.2); BASOPHILS % (AUTO) 0.3 % (0-2); EOSINOPHILS % (AUTO) 0.4 % (0-6); HEMATOCRIT 42.4 % (37.9-51.0); HEMOGLOBIN 14.3 g/dL (13.5-17.0); LYMPHOCYTES % (AUTO) 15.6 % (13-45); MEAN CORPUSCULAR HEMOGLOBIN 27.8 pg (27.0-33.4); MEAN CORPUSCULAR HGB CONC 33.7 g/dL (32.0-36.0); MEAN CORPUSCULAR VOLUME 83 fl (80-97); MONOCYTES % (AUTO) 11.4 % (3-13); PLATELET COUNT 254 10^3/uL (150-450); RED BLOOD COUNT 5.14 10^6/uL (4.35-5.55); RED CELL DISTRIBUTION WIDTH 13.7 % (11.5-14.0); SEGMENTED NEUTROPHILS % (AUTO) 72.3 % (42-78); TOTAL CELLS COUNTED % (AUTO) 100 %; WHITE BLOOD COUNT 11.3 10^3/uL (4.0-10.5)
[2019-04-01 08:59] LABS: ALBUMIN 3.2 g/dL (3.5-5.0); ALKALINE PHOSPHATASE 60 U/L (38-126); ANION GAP 9 (5-19); ASPARTATE AMINO TRANSFERASE 25 U/L (17-59); BILIRUBIN,DIRECT 0.2 mg/dL (0.0-0.4); BILIRUBIN,TOTAL 0.6 mg/dL (0.2-1.3); BLOOD UREA NITROGEN 5 mg/dL (7-20); CALCIUM 9.2 mg/dL (8.4-10.2); CARBON DIOXIDE 24 mmol/L (22-30); CHLORIDE 106 mmol/L (98-107); GLUCOSE 115 mg/dL (75-110); POTASSIUM 4.5 mmol/L (3.6-5.0); TOTAL PROTEIN 6.2 g/dL (6.3-8.2)
[2019-04-01] MEDS ORDERED: MORPHINE SULFATE SR 15 MG TABLET PO SCH (10:00)
[2019-04-01] MEDS: DOCUSATE SODIUM 100 MG CAPSULE PO SCH ×2 (11:19→18:40)
[2019-04-01] MEDS: VANCOMYCIN HCL 1,000 MG in DEXTROSE 5%-WATER 250 ML IV SCH ×2 (11:20→18:40)
[2019-04-01] MEDS ORDERED: FENTANYL CITRATE INJ/PF 100 MCG/2 ML AMPUL ONE (16:53)
[2019-04-01] MEDS ORDERED: PROPOFOL INJ 200 MG/20 ML VIAL IV ONE (16:53)
[2019-04-01] MEDS ORDERED: ONDANSETRON HCL INJ/PF 4 MG/2 ML SDV ONE (16:53)
[2019-04-01] MEDS ORDERED: KETAMINE HCL INJ 500 MG/10 ML VIAL ONE (16:53)
[2019-04-01] MEDS ORDERED: MIDAZOLAM 2 MG/2 ML INJ ONE (16:53)
[2019-04-01] MEDS ORDERED: BUPIVACAINE HCL 0.5%-EPI 1:200000 INJ/PF 30 ML VIAL ONE (17:39)
[2019-04-01] MEDS ORDERED: FENTANYL CITRATE INJ/PF 100 MCG/2 ML AMPUL IV PRN ×3 (17:47)
[2019-04-01] MEDS ORDERED: MEPERIDINE HCL/PF INJ 25 MG/1 ML DISP.SYRIN IV PRN (17:47)
[2019-04-01] MEDS ORDERED: MORPHINE SULFATE 10 MG/ML INJ IV PRN (17:47)
[2019-04-01] MEDS ORDERED: PROMETHAZINE HCL INJ 25 MG/1 ML VIAL IV PRN ×2 (17:47)
[2019-04-01] MEDS ORDERED: DIPHENHYDRAMINE HCL 50 MG/ML VIAL IV PRN (17:47)
[2019-04-01] MEDS ORDERED: BUPIVACAINE HCL 0.5%-EPI 1:200000 INJ/PF 30 ML VIAL INJ ONE (17:59)
--- NOTE | 2019-04-01 18:08 | Operative Report ---
Nonrecallable Operative Report DATE OF SURGERY: 04/01/19 PREOPERATIVE DIAGNOSIS: Left forearm abscess POSTOPERATIVE DIAGNOSIS: Left forearm abscess OPERATION: Incision and drainage of left forearm abscess SURGEON: TORSTEN SHOEMAKER ANESTHESIA: Moderate Sedation TISSUE REMOVED OR ALTERED: None COMPLICATIONS: None ESTIMATED BLOOD LOSS: 25 cc INTRAOPERATIVE FINDINGS: See note PROCEDURE: Patient was brought to the operating room awake alert in stable condition placed on the upper table supine position given IV sedation the left arm was prepped and draped in usual sterile fashion for the procedure. After appropriate timeout and site verification we commenced the procedure. Patient had a pointing abscess in the medial aspect of the left midforearm over the brachioradialis muscle longitudinal incision was made over it with a 15 blade dissection was carried down through subcutaneous tissue with the Bovie cautery. Upon reaching the muscle this was divided with Bovie cautery we get into the abscess cavity. Approximately 25 cc of creamy yellow pus exuded from the abscess cavity. The abscess cavity was opened in its entire length with the Bovie cautery incising the muscle. It was a intramuscular abscess. Hemostasis was obtained with Bovie cautery. The abscess cavity was then copiously irrigated with normal saline. It was then packed with a Betadine soaked sponge. Which completed the procedure Sterile dressing was applied the patient was transferred back to recovery room in stable condition. Estimated blood loss 25 cc sponge needle counts were correct x2.
[2019-04-01] MEDS: CEFTRIAXONE 1 GM/D5W RTU 1 GM/50 ML RTUPB IV SCH (22:22)
[2019-04-01] MEDS: OXYCODONE-ACETAMINOPHEN 5-325 MG TABLET PO PRN (22:22)
[2019-04-01] MEDS: MORPHINE SULFATE 10 MG/ML INJ IV PRN (23:41)
[2019-04-02] MEDS: VANCOMYCIN HCL 1,000 MG in DEXTROSE 5%-WATER 250 ML IV SCH ×3 (02:12→18:04)
[2019-04-02] MEDS: MORPHINE SULFATE 10 MG/ML INJ IV PRN ×5 (03:57→23:45)
[2019-04-02 05:44] LABS: ABSOLUTE BASOPHILS # (AUTO) 0.1 10^3/uL (0.0-0.2); ABSOLUTE LYMPHOCYTES (AUTO) 1.8 10^3/uL (0.5-4.7); ABSOLUTE MONOCYTES (AUTO) 1.5 10^3/uL (0.1-1.4); ABSOLUTE NEUT (AUTO) 11.5 10^3/uL (1.7-8.2); BASOPHILS % (AUTO) 0.4 % (0-2); EOSINOPHILS % (AUTO) 0.2 % (0-6); HEMATOCRIT 41.3 % (37.9-51.0); HEMOGLOBIN 13.8 g/dL (13.5-17.0); MEAN CORPUSCULAR HEMOGLOBIN 27.5 pg (27.0-33.4); MEAN CORPUSCULAR HGB CONC 33.4 g/dL (32.0-36.0); MEAN CORPUSCULAR VOLUME 82 fl (80-97); MONOCYTES % (AUTO) 10.3 % (3-13); PLATELET COUNT 241 10^3/uL (150-450); RED BLOOD COUNT 5.01 10^6/uL (4.35-5.55); RED CELL DISTRIBUTION WIDTH 13.5 % (11.5-14.0); SEGMENTED NEUTROPHILS % (AUTO) 77.1 % (42-78); TOTAL CELLS COUNTED % (AUTO) 100 %; WHITE BLOOD COUNT 14.9 10^3/uL (4.0-10.5)
[2019-04-02 06:01] LABS: ANION GAP 6 (5-19); BLOOD UREA NITROGEN 7 mg/dL (7-20); CALCIUM 9.2 mg/dL (8.4-10.2); CARBON DIOXIDE 27 mmol/L (22-30); CHLORIDE 102 mmol/L (98-107); GLUCOSE 123 mg/dL (75-110); POTASSIUM 4.4 mmol/L (3.6-5.0)
[2019-04-02] MEDS ORDERED: INFLUENZA QUAD (6MOS+) 2019-20 VAC 0.5 ML SYR IM ONE (08:00)
--- NOTE | 2019-04-02 09:41 | PDOC PROGRESS REPORT ---
Subjective Progress Note for:: 04/02/19 Subjective:: 38 year old male with a past medical history of tobacco and daily m ethamphetamine and heroin IV drug use. He presents with approximately 1 week of left forearm pain and swelling with subjective fevers and fatigue he seeks evaluation the emergency room where he is found to have a 5.4 cm abscess and referred to surgery for admission. Patient denies previous episode, admits to fatigue and subjective fever and palpitations. 04/[id number]-old male with history of IV drug abuse admitted with left forearm abscess. No acute events since the admission. Patient may go for incision and drainage of the abscess today. Patient is comfortably in the bed denies any pain denies any problems. 04/[id number]-[id number]-old male with history of IV drug abuse admitted with left forearm abscess incision and drainage of the abscess was done yesterday. Patient complains of soreness. No acute events in the last 24 hours. Blood cultures are positive for gram-positive cocci in clusters and he is receiving cefepime and IV vancomycin. Echocardiogram was requested report is pending. Reason For Visit: ARM ABSCESS Physical Exam Vital Signs: Temp Pulse Resp BP Pulse Ox 98.8 F 99 18 141/90 H 100 04/02/19 08:13 04/02/19 08:13 04/02/19 08:13 04/02/19 08:13 04/02/19 08:13 Intake & Output 04/01/19 04/02/19 04/03/19 06:59 06:59 06:59 Intake Total 2402 2350 Output Total 204 Balance 2402 2146 Weight 80.1 kg 80.1 kg General appearance: PRESENT: no acute distress, cooperative, well-developed Head exam: PRESENT: atraumatic Eye exam: PRESENT: PERRLA Mouth exam: PRESENT: moist, tongue midline Teeth exam: PRESENT: poor dentation Neck exam: ABSENT: carotid bruit, JVD, lymphadenopathy, thyromegaly Respiratory exam: PRESENT: decreased breath sounds Cardiovascular exam: PRESENT: RRR. ABSENT: diastolic murmur, rubs, systolic murmur GI/Abdominal exam: PRESENT: normal bowel sounds, soft. ABSENT: distended, gu arding, mass, organolmegaly, rebound, tenderness Rectal exam: PRESENT: deferred Extremities exam: PRESENT: full ROM. ABSENT: calf tenderness, clubbing, pedal edema Neurological exam: PRESENT: alert, awake, oriented to person, oriented to place, oriented to time, oriented to situation, CN II-XII grossly intact. ABSENT: mot or sensory deficit Psychiatric exam: PRESENT: appropriate affect, normal mood. ABSENT: homicidal ideation, suicidal ideation Skin exam: PRESENT: dry, intact, warm. ABSENT: cyanosis, rash Results Laboratory Results: 04/02/19 05:07 04/02/19 05:07 04/02/19 04/02/19 05:07 05:07 WBC 14.9 H RBC 5.01 Hgb 13.8 Hct 41.3 MCV 82 MCH 27.5 MCHC 33.4 RDW 13.5 Plt Count 241 Seg Neutrophils % 77.1 Sodium 135.1 L Potassium 4.4 Chloride 102 Carbon Dioxide 27 Anion Gap 6 BUN 7 Creatinine 0.79 Est GFR ( Amer) > 60 Glucose 123 H Calcium 9.2 Impressions: Chest X-Ray 04/01/19 00:08 IMPRESSION: No acute cardiopulmonary abnormality copyright 2010 [employer]- All Rights Reserved Extremity Ultrasound 04/01/19 00:09 IMPRESSION: 5.4 cm complex collection in the forearm soft tissues, which may represent an abscess in the correct clinical setting. Assessment and Plan - Diagnosis (1) Abscess of left forearm Is this a current diagnosis for this admission?: Yes Plan: Defer to surgery 04/01/2019-patient admitted with left forearm abscess patient may go for incision and drainage of abscess today. Surgical team is on board. Presently on IV vancomycin and ceftriaxone. Echocardiogram is pending. Blood cultures are pending. Temperature is 98.4. Today's labs are pending. 04/02/2019-patient came with left forearm abscess status post incision and drainage was done. Blood cultures were positive for gram-positive cocci in clusters. Plan is to continue IV cefepime and vancomycin. Today's WBC count is 14,900. [place] 98.3. (2) History of intravenous drug abuse Is this a current diagnosis for this admission?: Yes Plan: Monitor for withdrawal, opiates PRN 04/01/2019-patient has history of IV drug abuse, counseling was provided today. Echocardiogram was requested. Blood cultures are pending. Patient may be a candidate for BEL because of the history of IV drug abuse. Plan is to repeat the blood cultures today. - Time Time Spent with patient: 25-34 minutes Smoking Cessation Education: over 10 minutes Medications reviewed and adjusted accordingly: Yes Anticipated discharge: Home
[2019-04-02] MEDS: DOCUSATE SODIUM 100 MG CAPSULE PO SCH ×2 (10:40→18:01)
[2019-04-02 11:33] LABS: VANCOMYCIN,TROUGH 6.8 ug/mL (5.0-20.0)
[2019-04-02 11:37] LABS: HEPATITS B SURFACE ANTIGEN Negative (Negative)
[2019-04-02 11:48] LABS: HEPATITIS C VIRUS ANTIBODY 0.2 s/co ratio (0.0-0.9)
[2019-04-02] MEDS: OXYCODONE-ACETAMINOPHEN 5-325 MG TABLET PO PRN ×2 (11:58→18:04)
--- NOTE | 2019-04-02 20:41 | PDOC PROGRESS REPORT ---
Subjective Progress Note for:: 04/02/19 Subjective:: pains left forearm I&D site Reason For Visit: ARM ABSCESS Physical Exam Vital Signs: Temp Pulse Resp BP Pulse Ox 98.3 F 100 16 118/79 98 04/02/19 15:04 04/02/19 15:04 04/02/19 15:04 04/02/19 15:04 04/02/19 15:04 Intake & Output 04/01/19 04/02/19 04/03/19 06:59 06:59 06:59 Intake Total 2402 2350 1730 Output Total 204 Balance 2402 2146 1730 Weight 80.1 kg 80.1 kg Exam: packing removed. Appears relatively clean. Repacked with wet to dry saline dressing Results Laboratory Results: 04/02/19 05:07 04/02/19 05:07 04/02/19 04/02/19 05:07 05:07 WBC 14.9 H RBC 5.01 Hgb 13.8 Hct 41.3 MCV 82 MCH 27.5 MCHC 33.4 RDW 13.5 Plt Count 241 Seg Neutrophils % 77.1 Sodium 135.1 L Potassium 4.4 Chloride 102 Carbon Dioxide 27 Anion Gap 6 BUN 7 Creatinine 0.79 Est GFR ( Amer) > 60 Glucose 123 H Calcium 9.2 Impressions: Chest X-Ray 04/01/19 00:08 IMPRESSION: No acute cardiopulmonary abnormality copyright 2011 [employer]- All Rights Reserved Extremity Ultrasound 04/01/19 00:09 IMPRESSION: 5.4 cm complex collection in the forearm soft tissues, which may represent an abscess in the correct clinical setting. Assessment & Plan - Diagnosis (1) intramuscular abscess left forearm Is this a current diagnosis for this admission?: Yes - Time Time Spent with patient: 15-24 minutes - Inpatient Certification Medical Necessity: Need for IV Antibiotics - Plan Summary Plan Summary: Continue wet to dry dressings q 12 hrs Continue IV antibiotics Check final result of C/S
--- NOTE | 2019-04-02 20:47 | PDOC PROGRESS REPORT ---
Subjective Progress Note for:: 04/02/19 Subjective:: left forearm incisional pains Reason For Visit: ARM ABSCESS Physical Exam Vital Signs: Temp Pulse Resp BP Pulse Ox 98.3 F 100 16 118/79 98 04/02/19 15:04 04/02/19 15:04 04/02/19 15:04 04/02/19 15:04 04/02/19 15:04 Intake & Output 04/01/19 04/02/19 04/03/19 06:59 06:59 06:59 Intake Total 2402 2350 1730 Output Total 204 Balance 2402 2146 1730 Weight 80.1 kg 80.1 kg Exam: Packing from left forearm removed and replaced with wet to dry saline dressings Wound looks relatively clean Results Laboratory Results: 04/02/19 05:07 04/02/19 05:07 04/02/19 04/02/19 05:07 05:07 WBC 14.9 H RBC 5.01 Hgb 13.8 Hct 41.3 MCV 82 MCH 27.5 MCHC 33.4 RDW 13.5 Plt Count 241 Seg Neutrophils % 77.1 Sodium 135.1 L Potassium 4.4 Chloride 102 Carbon Dioxide 27 Anion Gap 6 BUN 7 Creatinine 0.79 Est GFR ( Amer) > 60 Glucose 123 H Calcium 9.2 Impressions: Chest X-Ray 04/01/19 00:08 IMPRESSION: No acute cardiopulmonary abnormality copyright 2011 [employer]- All Rights Reserved Extremity Ultrasound 04/01/19 00:09 IMPRESSION: 5.4 cm complex collection in the forearm soft tissues, which may represent an abscess in the correct clinical setting. Assessment & Plan - Diagnosis (1) intramuscular abscess left forearm Is this a current diagnosis for this admission?: Yes (2) History of intravenous drug abuse Is this a current diagnosis for this admission?: Yes - Time Time Spent with patient: 15-24 minutes - Inpatient Certification Medical Necessity: Need for IV Antibiotics, Risk of Complication if Not Cared For in Hospital - Plan Summary Plan Summary: Has g+ cocci in chains on Blood C/S. Await final C/S Wound C/S so far no growth Plan: Continue IV antibiotics and saline wet to dry dressings Await final C/S results
[2019-04-02] MEDS: DEXTROSE 5%-LACTATED RINGERS 1,000 ML IV PRN (21:07)
[2019-04-02] MEDS: CEFTRIAXONE 1 GM/D5W RTU 1 GM/50 ML RTUPB IV SCH (21:07)
--- NOTE | 2019-04-02 22:53 | XCELERA REPORT ---
[address] [address] Transthoracic Echocardiogram Report Name: KEISHA GARCIA Age: 38 yrs Gender: Male : 1980 Patient Status: Inpatient Patient Location: [address] [place] [address] Study Date: 04/01/2019 11:27 AM Height: 74 in Weight: 172 lb BSA: 2.0 m2 Procedure: A two-dimensional transthoracic echocardiogram with color flow and Doppler was performed. Study Quality: Fair. Reason For Study: systolic murmur c ivdu History: SYSTOLIC MURMUR / IV DRUG USE. Ordering Physician: ANI VENEGAS Performed By: Shannan Menjivar Interpretation Summary The left ventricle is normal in size. There is normal left ventricular wall thickness. The left ventricular ejection fraction is within normal limits. LV EF is 60% Doppler measurements suggest normal left ventricular diastolic function The left ventricular wall motion is normal. There is no thrombus. No ASD ,VSD , or PFO seen. The right ventricle is grossly normal size. The right atrium is normal. The left atrial size is normal. There is no evidence of mitral valve prolapse. There is no vegetation seen on the mitral valve. There is no mitral valve stenosis. There is a trace amount of mitral regurgitation There is no aortic valvular vegetation. There is no aortic valve stenosis There is no LVOT obstruction. No aortic regurgitation is present. There is no tricuspid valve vegetation. There is no tricuspid stenosis. There is a trace amount of tricuspid regurgitation Right ventricular systolic pressure is normal. RVSP is 23 to 28 mm of Hg , with RA mean of 5 to 10. There is no vegetation on the pulmonic valve. There is no pulmonic valvular stenosis. There is a trace amount of pulmonic regurgitation The aortic root is mildly dilated The inferior vena cava appeared normal and decreased > 50% with respiration (RAP 5-10 mmHg) There is no pericardial effusion. MMode/2D Measurements & Calculations RVDd: 3.2 cm LVIDd: 4.9 cm FS: 31.9 % Ao root diam: 4.0 cm IVSd: 0.61 cm LVIDs: 3.4 cm EDV(Teich): Ao root area: LVPWd: 0.85 cm 114.0 ml 12.5 cm2 ESV(Teich): 45.9 ml EF(Teich): 59.7 % EDV(MOD-sp4): SV(MOD-sp4): 83.7 ml 55.3 ml ESV(MOD-sp4): 28.4 ml EF(MOD-sp4): 66.1 % Doppler Measurements & Calculations MV E max karthikeyan: MV dec slope: Ao V2 max: LV V1 max P.4 cm/sec 111.2 cm/sec 3.8 mmHg MV A max karthikeyan: 483.0 cm/sec2 Ao max PG: LV V1 max: 58.3 cm/sec MV dec time: 0.15 sec4.9 mmHg 97.3 cm/sec MV E/A: 1.2 PA V2 max: TR max karthikeyan: 77.6 cm/sec 209.0 cm/sec PA max P.4 mmHg TR max P.5 mmHg Left Ventricle The left ventricle is normal in size. There is normal left ventricular wall thickness. The left ventricular ejection fraction is within normal limits. LV EF is 60%. Doppler measurements suggest normal left ventricular diastolic function. The left ventricular wall motion is normal. There is no thrombus. No ASD ,VSD , or PFO seen. Right Ventricle The right ventricle is grossly normal size. Atria The right atrium is normal. The left atrial size is normal. Mitral Valve There is no evidence of mitral valve prolapse. There is no vegetation seen on the mitral valve. There is no mitral valve stenosis. There is a trace amount of mitral regurgitation. Aortic Valve There is no aortic valvular vegetation. There is no aortic valve stenosis. There is no LVOT obstruction. No aortic regurgitation is present. Tricuspid Valve There is no tricuspid valve vegetation. There is no tricuspid stenosis. There is a trace amount of tricuspid regurgitation. Right ventricular systolic pressure is normal. RVSP is 23 to 28 mm of Hg , with RA mean of 5 to 10. Pulmonic Valve There is no vegetation on the pulmonic valve. There is no pulmonic valvular stenosis. There is a trace amount of pulmonic regurgitation. Great Vessels The aortic root is mildly dilated. The inferior vena cava appeared normal and decreased > 50% with respiration (RAP 5-10 mmHg). Effusions There is no pericardial effusion. : ANI VENEGAS Lakshmi
[2019-04-03] MEDS: OXYCODONE-ACETAMINOPHEN 5-325 MG TABLET PO PRN ×3 (01:11→16:53)
[2019-04-03] MEDS ORDERED: VANCOMYCIN HCL INJ 1000 MG VIAL ONE (01:16)
[2019-04-03] MEDS: VANCOMYCIN HCL 1,000 MG in DEXTROSE 5%-WATER 250 ML IV SCH ×2 (02:56→10:13)
[2019-04-03] MEDS: MORPHINE SULFATE 10 MG/ML INJ IV PRN ×4 (07:00→21:26)
[2019-04-03 07:44] LABS: ABSOLUTE EOSINOPHILS # (AUTO) 0.1 10^3/uL (0.0-0.6); ABSOLUTE LYMPHOCYTES (AUTO) 1.9 10^3/uL (0.5-4.7); ABSOLUTE MONOCYTES (AUTO) 0.8 10^3/uL (0.1-1.4); ABSOLUTE NEUT (AUTO) 5.1 10^3/uL (1.7-8.2); BASOPHILS % (AUTO) 0.2 % (0-2); EOSINOPHILS % (AUTO) 1.7 % (0-6); HEMATOCRIT 40.1 % (37.9-51.0); HEMOGLOBIN 13.7 g/dL (13.5-17.0); LYMPHOCYTES % (AUTO) 23.7 % (13-45); MEAN CORPUSCULAR HEMOGLOBIN 28.2 pg (27.0-33.4); MEAN CORPUSCULAR HGB CONC 34.1 g/dL (32.0-36.0); MEAN CORPUSCULAR VOLUME 83 fl (80-97); MONOCYTES % (AUTO) 9.6 % (3-13); PLATELET COUNT 253 10^3/uL (150-450); RED BLOOD COUNT 4.85 10^6/uL (4.35-5.55); RED CELL DISTRIBUTION WIDTH 13.3 % (11.5-14.0); SEGMENTED NEUTROPHILS % (AUTO) 64.8 % (42-78); TOTAL CELLS COUNTED % (AUTO) 100 %; WHITE BLOOD COUNT 7.9 10^3/uL (4.0-10.5)
[2019-04-03 08:02] LABS: ALBUMIN 3.3 g/dL (3.5-5.0); ALKALINE PHOSPHATASE 46 U/L (38-126); ANION GAP 9 (5-19); ASPARTATE AMINO TRANSFERASE 19 U/L (17-59); BILIRUBIN,DIRECT 0.1 mg/dL (0.0-0.4); BILIRUBIN,TOTAL 0.4 mg/dL (0.2-1.3); BLOOD UREA NITROGEN 8 mg/dL (7-20); CALCIUM 9.8 mg/dL (8.4-10.2); CARBON DIOXIDE 28 mmol/L (22-30); CHLORIDE 102 mmol/L (98-107); GLUCOSE 106 mg/dL (75-110); POTASSIUM 4.7 mmol/L (3.6-5.0); TOTAL PROTEIN 6.6 g/dL (6.3-8.2)
[2019-04-03] MEDS: DOCUSATE SODIUM 100 MG CAPSULE PO SCH ×2 (10:13→17:14)
--- NOTE | 2019-04-03 10:17 | PDOC PROGRESS REPORT ---
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 He presents with approximately 1 week of left forearm pain and swelling with subjective fevers and fatigue he seeks evaluation the emergency room where he is found to have a 5.4 cm abscess and referred to surgery for admission. Patient denies previous episode, admits to fatigue and subjective fever and palpitations. 04/01/[id number]-rodp-old male with history of IV drug abuse admitted with left forearm abscess. No acute events since the admission. Patient may go for incision and drainage of the abscess today. Patient is comfortably in the bed denies any pain denies any problems. 04/02/[id number]-nruk-old male with history of IV drug abuse admitted with left forearm abscess incision and drainage of the abscess was done yesterday. Patient complains of soreness. No acute events in the last 24 hours. Blood cultures are positive for gram-positive cocci in clusters and he is receiving cefepime and IV vancomycin. Echocardiogram was requested report is pending. 04/03/[id number]-mknu-old male admitted with left forearm abscess status post incision and drainage was done. Wound cultures came back positive for gram- positive cocci and blood cultures are positive for staph aureus. Patient is receiving IV cefepime and IV vancomycin. Echo cardiogram was done no evidence of endocarditis reported. Reason For Visit: ARM ABSCESS Physical Exam Vital Signs: Temp Pulse Resp BP Pulse Ox 98.1 F 80 17 116/61 98 04/03/19 08:00 04/03/19 08:00 04/03/19 08:00 04/03/19 08:00 04/03/19 08:00 Intake & Output 04/02/19 04/03/19 04/04/19 06:59 06:59 06:59 Intake Total 2350 2870 Output Total 204 Balance 2146 2870 Weight 80.1 kg 80.5 kg General appearance: PRESENT: no acute distress, cooperative, well-developed Head exam: PRESENT: atraumatic Eye exam: PRESENT: PERRLA Mouth exam: PRESENT: dry mucosa Teeth exam: PRESENT: poor dentation Neck exam: ABSENT: carotid bruit, JVD, lymphadenopathy, thyromegaly Respiratory exam: PRESENT: decreased breath sounds Cardiovascular exam: PRESENT: RRR. ABSENT: diastolic murmur, rubs, systolic murmur GI/Abdominal exam: PRESENT: normal bowel sounds, soft. ABSENT: distended, guarding, mass, organolmegaly, rebound, tenderness Rectal exam: PRESENT: deferred Extremities exam: PRESENT: full ROM. ABSENT: calf tenderness, clubbing, pedal edema Neurological exam: PRESENT: alert, awake, oriented to person, oriented to place, oriented to time, oriented to situation, CN II-XII grossly intact. ABSENT: motor sensory deficit Psychiatric exam: PRESENT: appropriate affect, normal mood. ABSENT: homicidal ideation, suicidal ideation Results Laboratory Results: 04/03/19 06:50 04/03/19 06:50 04/03/19 04/03/19 06:50 06:50 WBC 7.9 RBC 4.85 Hgb 13.7 Hct 40.1 MCV 83 MCH 28.2 MCHC 34.1 RDW 13.3 Plt Count 253 Seg Neutrophils % 64.8 Sodium 138.6 Potassium 4.7 Chloride 102 Carbon Dioxide 28 Anion Gap 9 BUN 8 Creatinine 0.75 Est GFR ( Amer) > 60 Glucose 106 Calcium 9.8 Magnesium 2.1 Total Bilirubin 0.4 AST 19 Alkaline Phosphatase 46 Total Protein 6.6 Albumin 3.3 L Impressions: Chest X-Ray 04/01/19 00:08 IMPRESSION: No acute cardiopulmonary abnormality copyright 2010 [employer]- All Rights Reserved Extremity Ultrasound 04/01/19 00:09 IMPRESSION: 5.4 cm complex collection in the forearm soft tissues, which may represent an abscess in the correct clinical setting. Assessment and Plan - Diagnosis (1) Abscess of left forearm Is this a current diagnosis for this admission?: Yes Plan: Defer to surgery 04/01/2019-patient admitted with left forearm abscess patient may go for inci lucas and drainage of abscess today. Surgical team is on board. Presently on IV vancomycin and ceftriaxone. Echocardiogram is pending. Blood cultures are pending. Temperature is 98.4. Today's labs are pending. 04/02/2019-patient came with left forearm abscess status post incision and drainage was done. Blood cultures were positive for gram-positive cocci in clusters. Plan is to continue IV cefepime and vancomycin. Today's WBC count is 14,900. [place] 98.3. 04/03/2019-patient admitted with left forearm abscess status post incision and drainage was done. Blood cultures are positive for staph aureus waiting for the sensitivity report and wound cultures are positive for gram-positive cocci in chains. Plan is to continue IV cephapirin and IV vancomycin. WBC count is 7.9 T-max is 98.7. Echocardiogram is normal. (2) History of intravenous drug abuse Is this a current diagnosis for this admission?: Yes - Time Time Spent with patient: 25-34 minutes Smoking Cessation Education: over 10 minutes Medications reviewed and adjusted accordingly: Yes Anticipated discharge: Home
[2019-04-03 11:05] LABS: VANCOMYCIN,TROUGH 8.7 ug/mL (5.0-20.0)
[2019-04-03] MEDS: VANCOMYCIN HCL 1,250 MG in DEXTROSE 5%-WATER 250 ML IV SCH (18:34)
--- NOTE | 2019-04-03 19:40 | PDOC PROGRESS REPORT ---
Subjective Progress Note for:: 04/03/19 Subjective:: Pains along the left forearm Reason For Visit: ARM ABSCESS Physical Exam Vital Signs: Temp Pulse Resp BP Pulse Ox 98.3 F 86 17 111/63 100 04/03/19 16:00 04/03/19 16:00 04/03/19 16:00 04/03/19 16:00 04/03/19 16:00 Intake & Output 04/02/19 04/03/19 04/04/19 06:59 06:59 06:59 Intake Total 2350 2870 835 Output Total 204 Balance 2146 2870 835 Weight 80.1 kg 80.5 kg Exam: Dressings removed and the wound looks clean and shallower. New wet-to-dry dressings were placed. Results Laboratory Results: 04/03/19 06:50 04/03/19 06:50 04/03/19 04/03/19 06:50 06:50 WBC 7.9 RBC 4.85 Hgb 13.7 Hct 40.1 MCV 83 MCH 28.2 MCHC 34.1 RDW 13.3 Plt Count 253 Seg Neutrophils % 64.8 Sodium 138.6 Potassium 4.7 Chloride 102 Carbon Dioxide 28 Anion Gap 9 BUN 8 Creatinine 0.75 Est GFR ( Amer) > 60 Glucose 106 Calcium 9.8 Magnesium 2.1 Total Bilirubin 0.4 AST 19 Alkaline Phosphatase 46 Total Protein 6.6 Albumin 3.3 L 04/01/19 00:16 Clean Catch Midstream Urine Culture - Final NO GROWTH 2 DAYS Impressions: Chest X-Ray 04/01/19 00:08 IMPRESSION: No acute cardiopulmonary abnormality copyright 2011 [employer]- All Rights Reserved Extremity Ultrasound 04/01/19 00:09 IMPRESSION: 5.4 cm complex collection in the forearm soft tissues, which may represent an abscess in the correct clinical setting. Assessment & Plan - Diagnosis (1) intramuscular abscess left forearm Is this a current diagnosis for this admission?: Yes (2) History of intravenous drug abuse Is this a current diagnosis for this admission?: Yes - Time Time Spent with patient: 15-24 minutes - Inpatient Certification Medical Necessity: Need for IV Antibiotics - Plan Summary Plan Summary: Continue with local wound care and IV antibiotics. Awaiting final sensitivity studies for Gram positive cocci in chains for the wound and staph aureus for the blood culture. Patient remains afebrile and the wound looks very good at this time
[2019-04-03] MEDS: CEFTRIAXONE 1 GM/D5W RTU 1 GM/50 ML RTUPB IV SCH (21:27)
[2019-04-03] MEDS: DEXTROSE 5%-LACTATED RINGERS 1,000 ML IV PRN (22:45)
[2019-04-04] MEDS: OXYCODONE-ACETAMINOPHEN 5-325 MG TABLET PO PRN ×3 (00:09→17:37)
[2019-04-04] MEDS: MORPHINE SULFATE 10 MG/ML INJ IV PRN ×4 (01:26→20:13)
[2019-04-04] MEDS: VANCOMYCIN HCL 1,250 MG in DEXTROSE 5%-WATER 250 ML IV SCH ×2 (01:26→11:13)
[2019-04-04] MEDS: DOCUSATE SODIUM 100 MG CAPSULE PO SCH ×2 (10:01→17:36)
--- NOTE | 2019-04-04 10:30 | PDOC PROGRESS REPORT ---
Subjective Progress Note for:: 04/04/19 Reason For Visit: ARM abscess patient has no complaints. Physical Exam Vital Signs: Temp Pulse Resp BP Pulse Ox 97.6 F 68 17 107/84 100 04/04/19 08:00 04/04/19 08:00 04/04/19 08:00 04/04/19 08:00 04/04/19 08:00 Intake & Output 04/03/19 04/04/19 04/05/19 06:59 06:59 06:59 Intake Total 2870 3645 Balance 2870 3645 Weight 80.5 kg 80.6 kg General appearance: PRESENT: no acute distress Gentrourinary exam: PRESENT: other - Anemia examined. Loop Butternut drains intact, related, and 3 wound cavities. Wounds irrigated with saline, repack with small portions of gauze. Davis catheter still in Musculoskeletal exam: PRESENT: other - Wound open, clean, minimal serous fluid. No cellulitis. Graft range of motion of the wrist and forearm preserved. Results Laboratory Results: 04/03/19 06:50 04/03/19 06:50 04/01/19 17:55 Forearm - Left Gram Stain - Final 04/01/19 17:55 Forearm - Left Wound Culture - Final Strep Anginosus Group No Anaerobic Organisms 03/31/19 23:14 Blood Blood Culture - Final Strep Anginosus Group 04/01/19 00:16 Clean Catch Midstream Urine Culture - Final NO GROWTH 2 DAYS Impressions: Chest X-Ray 04/01/19 00:08 IMPRESSION: No acute cardiopulmonary abnormality copyright 2011 [employer]- All Rights Reserved Extremity Ultrasound 04/01/19 00:09 IMPRESSION: 5.4 cm complex collection in the forearm soft tissues, which may represent an abscess in the correct clinical setting. Assessment & Plan - Diagnosis (1) intramuscular abscess left forearm Is this a current diagnosis for this admission?: Yes Plan: Impression: Wound clean, planning to heal by secondary intention. Growing staph, sensitive to cephalosporins Recommend agents: 1. Will get patient up, shower, start teaching patient dressing changes. 2. Anticipate discharge home tomorrow. - Time Time Spent with patient: 15-24 minutes
--- NOTE | 2019-04-04 11:43 | PDOC PROGRESS REPORT ---
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 He presents with approximately 1 week of left forearm pain and swelling with subjective fevers and fatigue he seeks evaluation the emergency room where he is found to have a 5.4 cm abscess and referred to surgery for admission. Patient denies previous episode, admits to fatigue and subjective fever and palpitations. 04/01/[id number]-xrax-old male with history of IV drug abuse admitted with left forearm abscess. No acute events since the admission. Patient may go for incision and drainage of the abscess today. Patient is comfortably in the bed denies any pain denies any problems. 04/02/[id number]-bisy-old male with history of IV drug abuse admitted with left forearm abscess incision and drainage of the abscess was done yesterday. Patient complains of soreness. No acute events in the last 24 hours. Blood cultures are positive for gram-positive cocci in clusters and he is receiving cefepime and IV vancomycin. Echocardiogram was requested report is pending. 04/03/[id number]-cmpx-old male admitted with left forearm abscess status post incision and drainage was done. Wound cultures came back positive for gram- positive cocci and blood cultures are positive for staph aureus. Patient is receiving IV cefepime and IV vancomycin. Echo cardiogram was done no evidence of endocarditis reported. 07/05/[id number]-ujoa-old male admitted with left forearm abscess status post incision and drainage was done. Wound cultures came back positive for staph aureus. Presently on IV ceftriaxone and IV vancomycin , IV vancomycin is discontinued by the surgical team. Presently on IV ceftriaxone. Afebrile. Plan is to continue to follow the patient regular basis. Reason For Visit: ARM ABSCESS Physical Exam Vital Signs: Temp Pulse Resp BP Pulse Ox 97.6 F 68 17 107/84 100 04/04/19 08:00 04/04/19 08:00 04/04/19 08:00 04/04/19 08:00 04/04/19 08:00 Intake & Output 04/03/19 04/04/19 04/05/19 06:59 06:59 06:59 Intake Total 2870 3645 Balance 2870 3645 Weight 80.5 kg 80.6 kg General appearance: PRESENT: no acute distress Head exam: PRESENT: atraumatic Eye exam: PRESENT: PERRLA Mouth exam: PRESENT: dry mucosa Teeth exam: PRESENT: poor dentation Respiratory exam: PRESENT: decreased breath sounds Cardiovascular exam: PRESENT: RRR. ABSENT: diastolic murmur, rubs, systolic murmur GI/Abdominal exam: PRESENT: normal bowel sounds, soft. ABSENT: distended, guarding, mass, organolmegaly, rebound, tenderness Rectal exam: PRESENT: deferred Extremities exam: PRESENT: full ROM. ABSENT: calf tenderness, clubbing, pedal edema Neurological exam: PRESENT: alert, awake, oriented to person, oriented to place, oriented to time, oriented to situation, CN II-XII grossly intact. ABSENT: motor sensory deficit Psychiatric exam: PRESENT: appropriate affect, normal mood. ABSENT: homicidal ideation, suicidal ideation Results Laboratory Results: 04/03/19 06:50 04/03/19 06:50 04/01/19 17:55 Forearm - Left Gram Stain - Final 04/01/19 17:55 Forearm - Left Wound Culture - Final Strep Anginosus Group No Anaerobic Organisms 03/31/19 23:14 Blood Blood Culture - Final Strep Anginosus Group 04/01/19 00:16 Clean Catch Midstream Urine Culture - Final NO GROWTH 2 DAYS Impressions: Chest X-Ray 04/01/19 00:08 IMPRESSION: No acute cardiopulmonary abnormality copyright 2011 [employer]- All Rights Reserved Extremity Ultrasound 04/01/19 00:09 IMPRESSION: 5.4 cm complex collection in the forearm soft tissues, which may represent an abscess in the correct clinical setting. Assessment and Plan - Diagnosis (1) Abscess of left forearm Is this a current diagnosis for this admission?: Yes Plan: Defer to surgery 04/01/2019-patient admitted with left forearm abscess patient may go for incision and drainage of abscess today. Surgical team is on board. Presently on IV vancomycin and ceftriaxone. Echocardiogram is pending. Blood cultures are pending. Temperature is 98.4. Today's labs are pending. 04/02/2019-patient came with left forearm abscess status post incision and drainage was done. Blood cultures were positive for gram-positive cocci in clusters. Plan is to continue IV cefepime and vancomycin. Today's WBC count is 14,900. [place] 98.3. 04/03/2019-patient admitted with left forearm abscess status post incision and drainage was done. Blood cultures are positive for staph aureus waiting for the sensitivity report and wound cultures are positive for gram-positive cocci in chains. Plan is to continue IV cefepime and IV vancomycin. WBC count is 7.9 T- max is 98.7. Echocardiogram is normal. 04/04/2019-wound culture came back positive for staph aureus. Presently on IV ceftriaxone. As per the surgical recommendations. Patient is afebrile. Probably discharge home tomorrow. (2) History of intravenous drug abuse Is this a current diagnosis for this admission?: Yes - Time Time Spent with patient: 25-34 minutes Medications reviewed and adjusted accordingly: Yes Anticipated discharge: Home
[2019-04-04] MEDS: CEFTRIAXONE 1 GM/D5W RTU 1 GM/50 ML RTUPB IV SCH (21:50)
[2019-04-05] MEDS: OXYCODONE-ACETAMINOPHEN 5-325 MG TABLET PO PRN ×3 (04:11→18:51)
[2019-04-05] MEDS: MORPHINE SULFATE 10 MG/ML INJ IV PRN ×3 (07:56→20:35)
[2019-04-05] MEDS: DOCUSATE SODIUM 100 MG CAPSULE PO SCH ×2 (09:03→17:29)
--- NOTE | 2019-04-05 11:40 | PDOC PROGRESS REPORT ---
Subjective Progress Note for:: 04/05/19 Subjective:: wound pain improving Reason For Visit: ARM ABSCESS Physical Exam Vital Signs: Temp Pulse Resp BP Pulse Ox 97.6 F 73 18 106/74 97 04/05/19 08:12 04/05/19 08:12 04/05/19 08:12 04/05/19 08:12 04/05/19 08:12 Intake & Output 04/04/19 04/05/19 04/06/19 06:59 06:59 06:59 Intake Total 3645 1178 Balance 3645 1178 Weight 80.6 kg Exam: wound remains clean and inflammation decreasing Results Laboratory Results: 04/03/19 06:50 04/03/19 06:50 04/02/19 05:07 Blood Blood Culture (PCR) - Final Staphylococcus Species 04/01/19 17:55 Forearm - Left Gram Stain - Final 04/01/19 17:55 Forearm - Left Wound Culture - Final Strep Anginosus Group No Anaerobic Organisms 03/31/19 23:14 Blood Blood Culture - Final Strep Anginosus Group Impressions: Chest X-Ray 04/01/19 00:08 IMPRESSION: No acute cardiopulmonary abnormality copyright 2011 [employer]- All Rights Reserved Extremity Ultrasound 04/01/19 00:09 IMPRESSION: 5.4 cm complex collection in the forearm soft tissues, which may represent an abscess in the correct clinical setting. Assessment & Plan - Diagnosis (1) intramuscular abscess left forearm Is this a current diagnosis for this admission?: Yes (2) History of intravenous drug abuse Is this a current diagnosis for this admission?: Yes - Time Time Spent with patient: 15-24 minutes - Inpatient Certification Medical Necessity: Need for IV Antibiotics - Plan Summary Plan Summary: Possible discharge tomorrow when his cousin from [place] will pick him up Continue IV antibiotics 24 hrs
--- NOTE | 2019-04-05 13:58 | PDOC DISCHARGE SUMMARY ---
Impression - Admit/DC Date/PCP Admission Date/Primary Care Provider: 04/03/19 16:51 Discharge Date: 04/05/19 - Discharge Diagnosis (1) Abscess of left forearm Is this a current diagnosis for this admission?: Yes - Additional Information Resuscitation Status: Full Code Discharge Diet: Regular Discharge Activity: Activity As Tolerated Referrals: [facility] [Provider Group] - 04/19/19 8:00 am Prescriptions: Amox Tr/Potassium Clavulanate [Augmentin 875-125 mg Tablet] 1 tab PO BID 7 Days #14 tablet Home Medications: Amox Tr/Potassium Clavulanate [Augmentin 875-125 mg Tablet] 1 tab PO BID 7 Days #14 tablet 04/05/19 History of Present Illiness History of Present Illness: KEISHA GARCIA is a 38 year old male with a history of IV drug abuse who presented with a large abscess on the left arm. He was admitted by the hospitalist and was taken to the operating room for debridement. He has been on antibiotics for the duration of his hospitalization. Hospital Course Hospital Course: The patient had unremarkable hospital course. With surgery and antibiotics his left arm is much better. He in fact has been helping with dressing changes. His brother is supposed to be picking him up today. I did give him the prescription for antibiotics. [facility]. Physical Exam Vital Signs: Temp Pulse Resp BP Pulse Ox 98.3 F 86 18 104/72 100 04/05/19 12:00 04/05/19 12:00 04/05/19 12:00 04/05/19 12:00 04/05/19 12:00 Intake & Output 04/04/19 04/05/19 04/06/19 06:59 06:59 06:59 Intake Total 3645 1178 480 Balance 3645 1178 480 Weight 80.6 kg General appearance: PRESENT: no acute distress, well-developed Head exam: PRESENT: atraumatic, normocephalic Respiratory exam: PRESENT: clear to auscultation evert, symmetrical, unlabored. ABSENT: rales, rhonchi, tachypnea, wheezes Cardiovascular exam: PRESENT: RRR, +S1, +S2 GI/Abdominal exam: PRESENT: normal bowel sounds, soft. ABSENT: distended, tenderness Rectal exam: PRESENT: deferred Extremities exam: ABSENT: pedal edema Musculoskeletal exam: PRESENT: normal inspection - The left forearm is wrapped in gauze and [place]. Remainder of extremities normal inspection Neurological exam: PRESENT: alert, awake, oriented to person, oriented to place, oriented to time, oriented to situation, CN II-XII grossly intact Psychiatric exam: PRESENT: appropriate affect. ABSENT: agitated, anxious Focused psych exam: ABSENT: delusional, restlessness Skin exam: PRESENT: dry, normal color, warm, other - Left forearm wrapped with dressing Results Laboratory Results: WBC 7.9 10^3/uL (4.0-10.5) 04/03/19 06:50 RBC 4.85 10^6/uL (4.35-5.55) 04/03/19 06:50 Hgb 13.7 g/dL (13.5-17.0) 04/03/19 06:50 Hct 40.1 % (37.9-51.0) 04/03/19 06:50 MCV 83 fl (80-97) 04/03/19 06:50 MCH 28.2 pg (27.0-33.4) 04/03/19 06:50 MCHC 34.1 g/dL (32.0-36.0) 04/03/19 06:50 RDW 13.3 % (11.5-14.0) 04/03/19 06:50 Plt Count 253 10^3/uL (150-450) 04/03/19 06:50 Lymph % (Auto) 23.7 % (13-45) 04/03/19 06:50 [place] % (Auto) 9.6 % (3-13) 04/03/19 06:50 Eos % (Auto) 1.7 % (0-6) 04/03/19 06:50 Baso % (Auto) 0.2 % (0-2) 04/03/19 06:50 Absolute Neuts (auto) 5.1 10^3/uL (1.7-8.2) 04/03/19 06:50 Absolute Lymphs (auto) 1.9 10^3/uL (0.5-4.7) 04/03/19 06:50 Absolute Monos (auto) 0.8 10^3/uL (0.1-1.4) 04/03/19 06:50 Absolute Eos (auto) 0.1 10^3/uL (0.0-0.6) 04/03/19 06:50 Absolute Basos (auto) 0.0 10^3/uL (0.0-0.2) 04/03/19 06:50 Seg Neutrophils % 64.8 % (42-78) 04/03/19 06:50 PT 12.8 SEC (11.4-15.4) 03/31/19 23:14 INR 0.96 03/31/19 23:14 VBG pH 7.39 (7.30-7.42) 03/31/19 23:14 VBG pCO2 48.6 mmHg (35-63) 03/31/19 23:14 VBG HCO3 28.4 mmol/L (20-32) 03/31/19 23:14 VBG Base Excess 2.5 mmol/L 03/31/19 23:14 Sodium 138.6 mmol/L (137-145) 04/03/19 06:50 Potassium 4.7 mmol/L (3.6-5.0) 04/03/19 06:50 Chloride 102 mmol/L (98-107) 04/03/19 06:50 Carbon Dioxide 28 mmol/L (22-30) 04/03/19 06:50 Anion Gap 9 (5-19) 04/03/19 06:50 BUN 8 mg/dL (7-20) 04/03/19 06:50 Creatinine 0.75 mg/dL (0.52-1.25) 04/03/19 06:50 Est GFR ( Amer) > 60 (>60) 04/03/19 06:50 Est GFR (MDRD) Non-Af > 60 (>60) 04/03/19 06:50 Glucose 106 mg/dL (75-110) 04/03/19 06:50 POC Glucose 114 mg/dL (70-110) H 03/31/19 23:29 Lactic Acid 1.5 mmol/L (0.7-2.1) 03/31/19 23:14 Calcium 9.8 mg/dL (8.4-10.2) 04/03/19 06:50 Magnesium 2.1 mg/dL (1.6-2.3) 04/03/19 06:50 Total Bilirubin 0.4 mg/dL (0.2-1.3) 04/03/19 06:50 Direct Bilirubin 0.1 mg/dL (0.0-0.4) 04/03/19 06:50 Neonat Total Bilirubin Not Reportable 04/03/19 06:50 Neonat Direct Bilirubin Not Reportable 04/03/19 06:50 Neonat Indirect Bili Not Reportable 04/03/19 06:50 AST 19 U/L (17-59) 04/03/19 06:50 ALT 17 U/L (<50) 04/03/19 06:50 Alkaline Phosphatase 46 U/L (38-126) 04/03/19 06:50 Total Protein 6.6 g/dL (6.3-8.2) 04/03/19 06:50 Albumin 3.3 g/dL (3.5-5.0) L 04/03/19 06:50 Urine Color YELLOW 04/01/19 00:16 Urine Appearance SLIGHTLY-CLOUDY 04/01/19 00:16 Urine pH 5.0 (5.0-9.0) 04/01/19 00:16 Ur Specific [place] 1.023 04/01/19 00:16 Urine Protein NEGATIVE mg/dL (NEGATIVE) 04/01/19 00:16 Urine Glucose (UA) NEGATIVE mg/dL (NEGATIVE) 04/01/19 00:16 Urine Ketones TRACE mg/dL (NEGATIVE) H 04/01/19 00:16 Urine Blood NEGATIVE (NEGATIVE) 04/01/19 00:16 Urine Nitrite (Reflex) NEGATIVE (NEGATIVE) 04/01/19 00:16 Urine Bilirubin NEGATIVE (NEGATIVE) 04/01/19 00:16 Urine Urobilinogen NEGATIVE mg/dL (<2.0) 04/01/19 00:16 Leukocyte Esterase Rfl TRACE (NEGATIVE) H 04/01/19 00:16 Urine RBC (Auto) 8 /HPF 04/01/19 00:16 U Hyaline Cast (Auto) 1 /LPF 04/01/19 00:16 Urine WBC (Reflex) 9 /HPF 04/01/19 00:16 Squamous Epi Cells Auto <1 /HPF 04/01/19 00:16 Calcium Oxalate Cr Auto FEW /HPF 04/01/19 00:16 Urine Mucus (Auto) RARE /LPF 04/01/19 00:16 Urine Ascorbic Acid NEGATIVE (NEGATIVE) 04/01/19 00:16 Time Trough Drawn 1015 04/03/19 10:15 Vancomycin Trough 8.7 ug/mL (5.0-20.0) 04/03/19 10:15 Hepatitis A IgM Ab Negative (Negative) 04/01/19 07:43 Hep Bs Antigen Negative (Negative) 04/01/19 07:43 Hep B Core IgM Ab Negative (Negative) 04/01/19 07:43 Hepatitis C Antibody 0.2 s/co ratio (0.0-0.9) 04/01/19 07:43 HIV 1&2 Antibody NEGATIVE (NEGATIVE) 03/31/19 23:14 Impressions: Chest X-Ray 04/01/19 00:08 IMPRESSION: No acute cardiopulmonary abnormality copyright 2011 [employer]- All Rights Reserved Extremity Ultrasound 04/01/19 00:09 IMPRESSION: 5.4 cm complex collection in the forearm soft tissues, which may represent an abscess in the correct clinical setting. Plan Health Concerns: Recurrent use of intravenous drugs causing recurrent abscesses Plan of Treatment: Complete antibiotics as ordered. [facility] Goals: Complete healing of the left arm abscess Time Spent: Greater than 30 Minutes Stroke Is this a Stroke Patient?: No Acute Heart Failure - Is this a Heart Failure Patient?: No
[2019-04-05] MEDS: CEFTRIAXONE 1 GM/D5W RTU 1 GM/50 ML RTUPB IV SCH (22:13)
[2019-04-06 01:07] VITALS: BP 167/92
== END 2019-04-05 23:35 | disposition home or self-care (01) | DRG 502 ==
LOC: ER 21:51 → INTOOBSV 04-01 01:54 → EH 04-01 01:54 → 3S 04-01 03:20 → 4S 04-02 18:17 → OBSVTOIN 04-03 16:51
PROVIDERS: ATTEND Surgery
PROC: 0K9800Z Drainage of Left Upper Arm Muscle with Drainage Device, Open Approach (ICD-10-PCS; principal; 2019-04-01 14:45)
DX: M60.032 Infective myositis, left forearm (principal); F11.10 Opioid abuse, uncomplicated; F15.10 Other stimulant abuse, uncomplicated; F17.200 Nicotine dependence, unspecified, uncomplicated; R01.1 Cardiac murmur, unspecified; B95.61 Methicillin susceptible Staphylococcus aureus infection as the cause of diseases classified elsewhere
CPT/HCPCS: 1810; 36415; 71045; 76882; 80048; 80053; 80074; 80202; 81001; 82803; 82962; 83605; 83735; 85025; 85610; 86701; 87040; 87070; 87075; 87077; 87086; 87150; 87186; 87205; 93005; 93010; 93306; 96365; 99285; G0378; J0696; J1885; J2250; J2270; J2405; J2704; J3010; J3370; J3490; J7030; J7060; J7121